=== PATIENT | male | born 1970 | race Caucasian/White ===

== ENCOUNTER → 2017-02-03 | Outpatient (CLI) | payer BC ==
--- NOTE | 2017-02-03 13:46 | STRESSTEST ---
[facility] [place] [place] Patient Exercised according to Rafiq protocol for 11.02 Min, basline BP was 112/84, Heart rate was 77, Baseline EKG ? early reporization, , Maximum heart rate reached was 169 which is 96% of the predicted, Maximum BP was 174/80 . no symptoms. once patient reached target herat rate he was injected with radio-isotope and exercised more than a min. post injection., EKG showed no chnages., Conclusion Negative stress test. await nuclear scan results. [email or web address]
--- NOTE | 2017-02-04 08:33 | DI ---
1 DAY HUMBERTO STRESS & REST MYOCARDIAL PERFUSION SCANS, 02/03/2017 10:00 AM : Clinical History: Test subject for evaluation of one day protocol for myocardial perfusion scans. The patient has no known cardiac history. Previous Exam: None at this facility. Monitoring Physician: Dr. Jonathan Crenshaw. Dose: Stress dose: 30 mCi on 02/03/2018. Rest dose: 10 mCi on 02/03/2019.. Quantitative Analysis: Sazneo program with low dose limited CT chest scan attenuation correctio n. Exam Quality: Excellent. Rejected Beats: Stress = 0%; Rest = 0%. HR: Stress = 78-87 b/m; Rest = 58-6 6 b/m. Left ventricular chamber sizes are normal at stress and rest. Transient ischemic dilatation ratio is 0.84 (normal Humberto TID <= 1.22; normal Lexiscan TID <= 1.33). Stress LVEF: 74%; rest LVEF: 73%. Non-a ttenuated and attenuated stress and rest myocardial perfusion, wall motion, and thickening are normal . Limited CT scans of the heart show no coronary artery calcifications. There are no lung nodules or enlarged nodes. Readin. Normal stress and rest left ventricular chamber size. Transient ischemic dilatation ratio is norm al at 0.84. 2. Normal stress and rest LVEF values of 74%, and 73%, respectively. 3. Normal stress and rest myocardial perfusion, wall motion, and thickening. 4. The low dose stress and rest CT scans of the chest through the region of the heart show no coron neetu calcifications. There are no pulmonary nodules or masses. There is no mediastinal or hilar adenop athy.
== END ==
LOC: NM 08:16 → EDSTATUS 12:00
PROVIDERS: ATTEND Radiology Diagnostic Radiology
DX: Z00.00 Encounter for general adult medical examination without abnormal findings (principal)
CPT/HCPCS: 93017